=== PATIENT | female | born 1980 | race Caucasian/White ===

== ENCOUNTER 2020-06-19 20:29 | Emergency (ER) | payer MEDICAID ==
[~2020-06-19] VITALS: Ht 167.6 cm; Wt 70.0 kg
[2020-06-19 20:32] VITALS: BP 138/70
--- NOTE | 2020-06-19 20:36 | NUR ---
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 States "i have a lot of stuff going on, and im done." All belongings removed from pt, roller doors in place. Pt given multiple glasses of water. Comes w/ brace, from home, on R elbow. States has a fx elbow and would like some advil and an xr for her arm. Requesting a pillow and water. Will supply w/ further water. Attempting ua from pt.
--- NOTE | 2020-06-19 20:42 | NUR ---
Pt given pillow and water for comfort. Pa at bedside for assessment. States to drinking "a little bit tonight."
[2020-06-19] MEDS ORDERED: IBUPROFEN 600 MG TABLET ONE (20:53)
--- NOTE | 2020-06-19 21:06 | NUR ---
Motrin given per pa verbal order of 600 mg.
--- NOTE | 2020-06-19 21:27 | NUR ---
Pt resting comfortably on gurney. Nadn. Watching television. Awaiting Further ERP orders.
[2020-06-19] MEDS ORDERED: IBUPROFEN 600 MG TABLET PO ONE (21:30)
== END 2020-06-19 23:30 | disposition home or self-care (01) ==
LOC: ED 23:15
DX: F32.0 Major depressive disorder, single episode, mild (principal); R45.851 Suicidal ideations; F10.120 Alcohol abuse with intoxication, uncomplicated; F17.210 Nicotine dependence, cigarettes, uncomplicated; Y90.9 Presence of alcohol in blood, level not specified
CPT/HCPCS: 99283; 99406